=== PATIENT | female | born 1985 | race Caucasian/White ===

== ENCOUNTER 2016-12-12 02:45 | Emergency (ER) | payer OTHER ==
[~2016-12-12] VITALS: Ht 170.1 cm; Wt 68.0 kg
[~2016-12-12 02:45] MED LIST: AMOXICILLIN500 M3 PO; AMOXICILLIN500 MG PO; AMOXIL500 MG PO; ANAPROX DS550 MG PO; AUGMENTIN 875 M1 TAB PO; AUGMENTIN 875875 MG PO; BACTRIM DS 8001 TA1 PO; CATAFLAM50 MG PO; CIPRO500 MG PO; CLARITIN10 MG PO; CYCLOBENZAPRINE10 MG PO; CYCLOBENZAPRINE5 M3 PO; Claritin-D 10 M1 T24 PO; FLAGYL500 MG PO; FLEXERIL10 MG PO; FLEXERIL5 MG PO; HYDROCODONE BIT1 T11 PO; IBU800 M1 PO; KEFLEX500 MG PO; METHIMAZOLE5 M1 PO; MOTRIN600 MG PO; MOTRIN800 MG PO; Motrin,Rufen800 MG PO; NAPROSYN500 MG PO; NORCO 325 MG-51 TAB PO; NORCO 5-325 TA1 EACH PO; PARAFON FORTE500 MG PO; PEN-VK500 MG PO; PHENERGAN W/DM480 ML PO; PHENERGAN25 M1 PO; PREDNICOT20 MG PO; PREDNISONE10 MG PO; PREDNISONE20 MG PO; PREDNISONE50 MG PO; PROVENTIL0.09 MG/A1 INH; PROVENTIL0.09 MG/AC IH; PYRIDIUM200 MG PO; ROBAXIN500 MG PO; ROBITUSSIN DM120 ML PO; SUDAFED60 M1 PO; SUDAFED60 MG PO; TESSALON PERLE100 M1 PO; TORADOL10 MG PO; TRAMADOL HCL50 MG PO; TRAZADONE HYDR100 MG PO; ULTRAM50 MG PO; VALIUM10 MG PO; VALIUM5 MG PO; VICODIN 5/500 505 MG PO; ZITHROMAX Z PA250 MG PO; ZITHROMAX Z-PA250 MG PO; ZITHROMAX250 MG PO; ZOFRAN ODT4 MG SL; Zofran4 MG PO
[2016-12-12 03:04] LABS: BASO % 0.1 % (0.0-1.0); EOS # 0.1 10*3/uL (0.0-0.4); HEMATOCRIT 33.3 % (37.0-47.0); HEMOGLOBIN 10.8 g/dl (12.0-16.0); LYMPH # 3.6 10*3/uL (1.3-4.4); LYMPH % 43.9 % (27.0-41.0); MEAN CELL VOLUME 83.3 fl (81.0-99.0); MEAN CORPUSCULAR HGB CONC 32.4 g/dl (33.0-37.0); MEAN PLATELET VOLUME 9.5 fl (9.6-12.3); MONO # 0.8 10*3/uL (0.1-1.0); MONO % 9.3 % (3.0-9.0); NEUT # 3.7 10*3/uL (2.3-7.9); NEUT % 45.5 % (47.0-73.0); PLATELET COUNT AUTOMATED 217 10*3/uL (130-400); RED CELL DISTRI WIDTH 13.8 % (0-14.5); WHITE BLOOD COUNT 8.2 10*3/uL (4.8-10.8)
[2016-12-12 03:10] LABS: BILIRUBIN NEGATIVE (NEGATIVE); BLOOD NEGATIVE (NEGATIVE); CLARITY SL CLOUDY (CLEAR); COLOR YELLOW (YELLOW); GLUCOSE NEGATIVE (NEGATIVE); KETONE NEGATIVE (NEGATIVE); LEUKO ESTERASE NEGATIVE (NEGATIVE); NITRITE NEGATIVE (NEGATIVE); PH 6.5 (5.0-9.0); PROTEIN NEGATIVE (NEGATIVE); UROBILINOGEN 0.2 E.U./dl (0.2-1.0)
[2016-12-12 03:14] LABS: PROTHROMBIN TIME 10.4 SECONDS (9.0-12.4)
[2016-12-12 03:15] LABS: BACTERIA TRACE; EPITHELIAL CELLS TNTC; WBC 0-2 wbc/hpf (0-5)
[2016-12-12 03:16] LABS: URINE REFLEX COMMENT NO (NO)
[2016-12-12 03:21] LABS: ALBUMIN 2.9 gm/dl (3.1-4.5); ALKALINE PHOSPHATASE 132 U/L (45-117); BILIRUBIN, TOTAL 0.2 mg/dl (0.2-1.0); BUN 10 mg/dl (7-24); CARBON DIOXIDE 24 mmol/L (21-32); CHLORIDE 113 mmol/L (98-107); CKMB 0.7 ng/ml (0.5-3.6); CPK 17 U/L (26-192); EST GLOM FILT AFRICAN AMERICAN > 60 ml/min; GLUCOSE 99 mg/dL (65-99); MAGNESIUM 1.9 mg/dL (1.5-2.1); POTASSIUM 4.1 mmol/L (3.5-5.1); SGOT/AST 10 IU/L (3-35); SGPT/ALT 27 U/L (12-78); SODIUM 145 mmol/L (136-145); TOTAL PROTEIN 5.9 gm/dL (6.4-8.2)
[2016-12-12 03:22] LABS: TROPONIN I < 0.015 ng/ml (<0.045)
[2016-12-12] MEDS ORDERED: INDOMETHACIN50 MG PO (04:53)
== END 2016-12-12 04:53 | disposition home or self-care (01) ==
LOC: ED 02:45
PROVIDERS: Emergency Medicine
DX: R07.89 Other chest pain (principal); F17.200 Nicotine dependence, unspecified, uncomplicated; I10 Essential (primary) hypertension; E03.9 Hypothyroidism, unspecified; F41.0 Panic disorder [episodic paroxysmal anxiety]; F14.10 Cocaine abuse, uncomplicated; F12.10 Cannabis abuse, uncomplicated; Z98.890 Other specified postprocedural states; Z90.49 Acquired absence of other specified parts of digestive tract

== ENCOUNTER → 2016-12-14 | Outpatient (CLI) | payer OTHER ==
[~2016-12-14] MED LIST changes: +INDOMETHACIN50 MG PO
--- NOTE | ~2016-12-14 | PF ---
[place], [place] PULMONARY FUNCTION TEST NAME: DIVINE PEREZ [facility] #: [id number] UNIT #: [id number] ROOM: DOCTOR: CHRISTO GREGORY MD,TOM BIRTHDATE: [birth year] DOS: 12/14/2016 HISTORY: Noted for this patient as 31 years old, outpatient, female, height of 68 inches and weight of 160 pounds, presented for the complete pulmonary function test for assessment of symptoms of productive cough with dyspnea with exertion and wheezing. The test was ordered by Dr. Divine Hayward. Tobacco use was noted 2 packs of cigarettes per day, which was continued for the past 22 years. Spirometry for this patient, the FVC for this patient was noted as 4.14 liters, 90% predicted value. The FEV1 was noted as 3.34 liters and 97% predicted value normal. Ratio of FEV1/FVC was recorded as 89%. No significant changes occurred for this patient postbronchodilator test. Flow volume loop was noted essentially normal. The lung volumes, thoracic gas volume recorded at 101%, residual volume 86%, total lung capacity 92%. All the lung volumes were noted as normal. The patient's lung diffusion noted normal at 79%. The patient's airway resistance and passive conductance were noted normal, however, partial improvement occurred postbronchodilator test. FINAL IMPRESSION: The pulmonary function tests were essentially noted normal with possibility of mild reversible obstructive lung disease cannot be completely excluded with current airway resistance, passive conductance testing. TOM VILLAFUERTE MD CM:PFREPORT:PULMONARY FUNCTION TEST [id number] TOM GREGORY MD
== END | disposition home or self-care (01) ==
LOC: LAB 08:33
DX: R06.2 Wheezing (principal)

== ENCOUNTER 2017-02-20 20:18 | Emergency (ER) | payer OTHER ==
[~2017-02-20] VITALS: Ht 170.1 cm; Wt 75.7 kg
[2017-02-20] MEDS ORDERED: BACTRIM DS 8001 TA1 PO (21:49)
== END 2017-02-20 21:52 | disposition home or self-care (01) ==
LOC: ED 20:18
DX: J32.9 Chronic sinusitis, unspecified (principal); F17.200 Nicotine dependence, unspecified, uncomplicated; F14.10 Cocaine abuse, uncomplicated; F12.90 Cannabis use, unspecified, uncomplicated; I10 Essential (primary) hypertension; E03.9 Hypothyroidism, unspecified; F41.0 Panic disorder [episodic paroxysmal anxiety]; Z98.890 Other specified postprocedural states; Z90.49 Acquired absence of other specified parts of digestive tract

== ENCOUNTER 2017-02-22 10:47 | Emergency (ER) | payer OTHER ==
[~2017-02-22] VITALS: Ht 170.1 cm; Wt 74.4 kg
[2017-02-22 11:26] LABS: BASO % 0.1 % (0.0-1.0); EOS # 0.1 10*3/uL (0.0-0.4); EOS % 0.9 % (1.0-4.0); HEMATOCRIT 37.2 % (37.0-47.0); HEMOGLOBIN 11.9 g/dl (12.0-16.0); LYMPH # 2.1 10*3/uL (1.3-4.4); LYMPH % 28.3 % (27.0-41.0); MEAN CELL VOLUME 83.6 fl (81.0-99.0); MEAN CORPUSCULAR HGB 26.7 pg (27.0-31.0); MEAN PLATELET VOLUME 9.5 fl (9.6-12.3); MONO # 0.8 10*3/uL (0.1-1.0); MONO % 10.3 % (3.0-9.0); NEUT # 4.5 10*3/uL (2.3-7.9); PLATELET COUNT AUTOMATED 252 10*3/uL (130-400); RED BLOOD COUNT 4.45 10*6/uL (4.10-5.10); WHITE BLOOD COUNT 7.5 10*3/uL (4.8-10.8)
[2017-02-22 11:43] LABS: ALBUMIN 3.1 gm/dl (3.1-4.5); ALKALINE PHOSPHATASE 192 U/L (45-117); BILIRUBIN, TOTAL 0.3 mg/dl (0.2-1.0); BUN 11 mg/dl (7-24); CARBON DIOXIDE 24 mmol/L (21-32); CHLORIDE 110 mmol/L (98-107); EST GLOM FILT AFRICAN AMERICAN > 60 ml/min; GLUCOSE 99 mg/dL (65-99); POTASSIUM 4.6 mmol/L (3.5-5.1); SGOT/AST 8 IU/L (3-35); SGPT/ALT 18 U/L (12-78); SODIUM 142 mmol/L (136-145); TOTAL PROTEIN 6.6 gm/dL (6.4-8.2)
[2017-02-22 11:45] LABS: TROPONIN I < 0.015 ng/ml (<0.045)
[2017-02-22 13:33] LABS: BILIRUBIN NEGATIVE (NEGATIVE); BLOOD NEGATIVE (NEGATIVE); CLARITY CLEAR (CLEAR); COLOR YELLOW (YELLOW); GLUCOSE NEGATIVE (NEGATIVE); KETONE NEGATIVE (NEGATIVE); LEUKO ESTERASE NEGATIVE (NEGATIVE); NITRITE NEGATIVE (NEGATIVE); PH 5.5 (5.0-9.0); PROTEIN NEGATIVE (NEGATIVE); SPECIFIC GRAVITY <= 1.005 (1.005-1.030); UROBILINOGEN 0.2 E.U./dl (0.2-1.0)
[2017-02-22 13:41] LABS: WBC 0-2 wbc/hpf (0-5)
[2017-02-22 13:42] LABS: BACTERIA 1+; URINE REFLEX COMMENT NO (NO)
== END 2017-02-22 14:27 | disposition other institution (70) ==
LOC: ED 10:47
PROVIDERS: Registered Nurse
DX: J32.9 Chronic sinusitis, unspecified (principal); F17.200 Nicotine dependence, unspecified, uncomplicated; F14.10 Cocaine abuse, uncomplicated; Z90.49 Acquired absence of other specified parts of digestive tract; Z98.890 Other specified postprocedural states

== ENCOUNTER 2017-04-05 19:52 | Inpatient (IN) | payer OTHER ==
[~2017-04-05] VITALS: Ht 170.1 cm; Wt 75.9 kg
[2017-04-05 19:59] VITALS: BP 137/68
[2017-04-05] MEDS ORDERED: DIAZEPAM5 MG PO (20:02)
[2017-04-05 20:39] LABS: BASO % 0.2 % (0.0-1.0); EOS % 0.5 % (1.0-4.0); HEMATOCRIT 32.9 % (37.0-47.0); HEMOGLOBIN 10.6 g/dl (12.0-16.0); LYMPH # 2.3 10*3/uL (1.3-4.4); LYMPH % 39.9 % (27.0-41.0); MEAN CELL VOLUME 83.3 fl (81.0-99.0); MEAN CORPUSCULAR HGB 26.8 pg (27.0-31.0); MEAN CORPUSCULAR HGB CONC 32.2 g/dl (33.0-37.0); MEAN PLATELET VOLUME 9.6 fl (9.6-12.3); MONO # 0.6 10*3/uL (0.1-1.0); MONO % 10.2 % (3.0-9.0); NEUT # 2.9 10*3/uL (2.3-7.9); PLATELET COUNT AUTOMATED 214 10*3/uL (130-400); RED BLOOD COUNT 3.95 10*6/uL (4.10-5.10); RED CELL DISTRI WIDTH 13.2 % (0-14.5); WHITE BLOOD COUNT 5.8 10*3/uL (4.8-10.8)
[2017-04-05 20:57] LABS: ALBUMIN 2.7 gm/dl (3.1-4.5); ALKALINE PHOSPHATASE 177 U/L (45-117); BILIRUBIN, TOTAL 0.3 mg/dl (0.2-1.0); BUN 11 mg/dl (7-24); CARBON DIOXIDE 24 mmol/L (21-32); CHLORIDE 113 mmol/L (98-107); EST GLOM FILT AFRICAN AMERICAN > 60 ml/min; GLUCOSE 102 mg/dL (65-99); MAGNESIUM 1.6 mg/dL (1.5-2.1); POTASSIUM 3.6 mmol/L (3.5-5.1); SGOT/AST 10 IU/L (3-35); SGPT/ALT 22 U/L (12-78); SODIUM 144 mmol/L (136-145); TOTAL PROTEIN 5.7 gm/dL (6.4-8.2)
[2017-04-05 21:01] LABS: TROPONIN I < 0.015 ng/ml (<0.045)
[2017-04-05 21:16] VITALS: BP 135/77
[2017-04-05 21:46] VITALS: BP 108/84
[2017-04-05 22:00] VITALS: BP 146/88
[2017-04-05 23:20] VITALS: BP 146/88
[2017-04-05 23:59] LABS: URINE AMPHETAMINES < 1000 (1000ng/ml); URINE BARBITURATES < 200 (200ng/ml); URINE COCAINE < 300 (300ng/ml)
== END 2017-04-06 00:20 | disposition left against medical advice (07) | DRG 313 ==
LOC: ED 19:52 → EDHOLD 21:20 → 4E 21:34
PROVIDERS: Internal Medicine; Student in an Organized Health Care Education/Training Program
DX: R07.9 Chest pain, unspecified (principal); E43 Unspecified severe protein-calorie malnutrition; E87.8 Other disorders of electrolyte and fluid balance, not elsewhere classified; J44.9 Chronic obstructive pulmonary disease, unspecified; F41.0 Panic disorder [episodic paroxysmal anxiety]; D64.9 Anemia, unspecified; I10 Essential (primary) hypertension; E05.90 Thyrotoxicosis, unspecified without thyrotoxic crisis or storm; R73.9 Hyperglycemia, unspecified; F14.10 Cocaine abuse, uncomplicated; F12.10 Cannabis abuse, uncomplicated; F10.10 Alcohol abuse, uncomplicated; Z90.49 Acquired absence of other specified parts of digestive tract; Z83.3 Family history of diabetes mellitus; Z82.49 Family history of ischemic heart disease and other diseases of the circulatory system; Z68.26 Body mass index [BMI] 26.0-26.9, adult; Z71.6 Tobacco abuse counseling; Z72.0 Tobacco use

== ENCOUNTER 2017-04-17 11:56 | Emergency (ER) | payer OTHER ==
[~2017-04-17] VITALS: Wt 77.1 kg
[~2017-04-17 11:56] MED LIST changes: +DIAZEPAM5 MG PO
[2017-04-17] MEDS ORDERED: PROVENTIL0.09 MG/A1 INH (12:02)
[2017-04-17 12:32] LABS: BASO % 0.1 % (0.0-1.0); EOS # 0.1 10*3/uL (0.0-0.4); EOS % 0.4 % (1.0-4.0); HEMATOCRIT 36.8 % (37.0-47.0); HEMOGLOBIN 11.9 g/dl (12.0-16.0); IG # 0.1 10*3/uL (0.0-0.1); LYMPH # 1.9 10*3/uL (1.3-4.4); LYMPH % 13.2 % (27.0-41.0); MEAN CELL VOLUME 83.3 fl (81.0-99.0); MEAN CORPUSCULAR HGB 26.9 pg (27.0-31.0); MEAN CORPUSCULAR HGB CONC 32.3 g/dl (33.0-37.0); MEAN PLATELET VOLUME 9.4 fl (9.6-12.3); MONO # 0.9 10*3/uL (0.1-1.0); MONO % 5.9 % (3.0-9.0); NEUT # 11.5 10*3/uL (2.3-7.9); NEUT % 79.9 % (47.0-73.0); OXYHEMOGLOBIN 88.1 % (85.0-98.0); PLATELET COUNT AUTOMATED 285 10*3/uL (130-400); RED BLOOD COUNT 4.42 10*6/uL (4.10-5.10); RED CELL DISTRI WIDTH 13.9 % (0-14.5); TOTAL HGB 12.3 G/DL (12.0-16.0); WHITE BLOOD COUNT 14.5 10*3/uL (4.8-10.8)
[2017-04-17 12:43] LABS: BUN 8 mg/dl (7-24); CARBON DIOXIDE 22 mmol/L (21-32); CHLORIDE 111 mmol/L (98-107); EST GLOM FILT AFRICAN AMERICAN > 60 ml/min; GLUCOSE 111 mg/dL (65-99); POTASSIUM 3.8 mmol/L (3.5-5.1); SODIUM 141 mmol/L (136-145)
[2017-04-17] MEDS ORDERED: DUONEB 3 MG/3 ML3 M1 INH (12:55)
[2017-04-17] MEDS ORDERED: LEVOFLOXACIN500 MG PO (12:55)
== END 2017-04-17 13:09 | disposition home or self-care (01) ==
LOC: ED 11:56
PROVIDERS: Emergency Medicine
DX: J18.9 Pneumonia, unspecified organism (principal); J45.909 Unspecified asthma, uncomplicated; F14.10 Cocaine abuse, uncomplicated; J44.9 Chronic obstructive pulmonary disease, unspecified; F12.10 Cannabis abuse, uncomplicated; Z79.899 Other long term (current) drug therapy; Z87.891 Personal history of nicotine dependence

== ENCOUNTER 2017-06-05 17:08 | Emergency (ER) | payer OTHER ==
[~2017-06-05] VITALS: Ht 170.1 cm; Wt 76.2 kg
[~2017-06-05 17:08] MED LIST changes: +DUONEB 3 MG/3 ML3 M1 INH; +LEVOFLOXACIN500 MG PO
[2017-06-05] MEDS ORDERED: AMOXICILLIN500 M2 PO (19:09)
[2017-06-05] MEDS ORDERED: NAPROSYN500 MG PO (19:09)
== END 2017-06-05 19:40 | disposition home or self-care (01) ==
LOC: ED 17:08
DX: S20.212A Contusion of left front wall of thorax, initial encounter (principal); K08.89 Other specified disorders of teeth and supporting structures; F17.200 Nicotine dependence, unspecified, uncomplicated; F12.10 Cannabis abuse, uncomplicated; Z90.49 Acquired absence of other specified parts of digestive tract; Z98.890 Other specified postprocedural states; Z79.899 Other long term (current) drug therapy; W01.198A Fall on same level from slipping, tripping and stumbling with subsequent striking against other object, initial encounter; Y93.89 Activity, other specified; Y92.89 Other specified places as the place of occurrence of the external cause; Y99.9 Unspecified external cause status

== ENCOUNTER 2017-06-12 10:20 | Emergency (ER) | payer OTHER ==
[~2017-06-12] VITALS: Ht 170.1 cm; Wt 76.2 kg
[~2017-06-12 10:20] MED LIST changes: +AMOXICILLIN500 M2 PO
[2017-06-12 11:16] LABS: BASO % 0.2 % (0.0-1.0); EOS % 0.7 % (1.0-4.0); HEMATOCRIT 36.3 % (37.0-47.0); HEMOGLOBIN 11.8 g/dl (12.0-16.0); LYMPH # 1.7 10*3/uL (1.3-4.4); LYMPH % 29.1 % (27.0-41.0); MEAN CELL VOLUME 83.8 fl (81.0-99.0); MEAN CORPUSCULAR HGB 27.3 pg (27.0-31.0); MEAN CORPUSCULAR HGB CONC 32.5 g/dl (33.0-37.0); MEAN PLATELET VOLUME 9.6 fl (9.6-12.3); MONO # 0.6 10*3/uL (0.1-1.0); MONO % 10.3 % (3.0-9.0); NEUT # 3.5 10*3/uL (2.3-7.9); NEUT % 59.4 % (47.0-73.0); PLATELET COUNT AUTOMATED 235 10*3/uL (130-400); RED BLOOD COUNT 4.33 10*6/uL (4.10-5.10); RED CELL DISTRI WIDTH 13.1 % (0-14.5); WHITE BLOOD COUNT 5.9 10*3/uL (4.8-10.8)
[2017-06-12 11:34] LABS: ALKALINE PHOSPHATASE 201 U/L (45-117); BUN 13 mg/dl (7-24); CHLORIDE 107 mmol/L (98-107); POTASSIUM 3.6 mmol/L (3.5-5.1); SGOT/AST 11 IU/L (3-35); SGPT/ALT 32 U/L (12-78); SODIUM 139 mmol/L (136-145); TOTAL PROTEIN 6.4 gm/dL (6.4-8.2)
[2017-06-12] MEDS ORDERED: CYCLOBENZAPRINE5 M3 PO (12:39)
[2017-06-12] MEDS ORDERED: NAPROSYN500 MG PO (12:39)
== END 2017-06-12 13:53 | disposition home or self-care (01) ==
LOC: ED 10:20
PROVIDERS: Nurse Practitioner Family
DX: M94.0 Chondrocostal junction syndrome [Tietze] (principal); F17.200 Nicotine dependence, unspecified, uncomplicated; F12.10 Cannabis abuse, uncomplicated; F14.10 Cocaine abuse, uncomplicated; E03.9 Hypothyroidism, unspecified; E78.00 Pure hypercholesterolemia, unspecified; Z90.49 Acquired absence of other specified parts of digestive tract; Z98.890 Other specified postprocedural states; Z79.899 Other long term (current) drug therapy

== ENCOUNTER 2018-09-02 08:40 | Emergency (ER) | payer OTHER ==
[~2018-09-02] VITALS: Ht 170.1 cm; Wt 77.1 kg
[2018-09-02] MEDS ORDERED: NAPROSYN500 MG PO (10:30)
== END 2018-09-02 10:50 | disposition home or self-care (01) ==
LOC: ED 08:40
DX: G56.01 Carpal tunnel syndrome, right upper limb (principal); F17.200 Nicotine dependence, unspecified, uncomplicated; Z79.899 Other long term (current) drug therapy

== ENCOUNTER → 2019-05-14 | Outpatient (CLI) | payer OTHER ==
--- NOTE | ~2019-05-14 | EKG ---
[place], [place] ELECTROCARDIOGRAM REPORT NAME: RAD PEREZ UNIT #: [id number] ROOM: DOCTOR: ANA DRAFT REPORT BIRTHDATE: [birth year] [facility] Test Date: 2019-05-14 Test Time: 14:40:09 Pat Name: RAD PEREZ Department: Room: Gender: F [employer]: [employer]ufemia Celeste : 1985 Requested By: MARLA BURT Order Number: [id number] Reading MD: Juan Diego Cowan MD Measurements Intervals [place] Rate: 101 P: 20 [place]: 141 QRS: 70 QRSD: 69 T: 75 QT: 333 QTc: 432 Interpretive Statements Sinus tachycardia Consider left ventricular hypertrophy No previous ECG available for comparison Electronically Signed On 05-14-2019 12:32:02 PDT by Juan Diego Cowan MD CM:EKGRPT:ELECTROCARDIOGRAM REPORT [id number] MARLA PEREZ DRAFT REPORT MARLA BURT
== END | disposition home or self-care (01) ==
LOC: CARD 14:30
DX: Z51.81 Encounter for therapeutic drug level monitoring (principal); R00.0 Tachycardia, unspecified; Z79.899 Other long term (current) drug therapy

== ENCOUNTER 2019-10-19 13:33 | Emergency (ER) | payer OTHER ==
[~2019-10-19] VITALS: Ht 170.1 cm; Wt 74.8 kg
== END 2019-10-19 15:45 | disposition home or self-care (01) ==
LOC: ED 13:33
DX: S39.012A Strain of muscle, fascia and tendon of lower back, initial encounter (principal); S13.4XXA Sprain of ligaments of cervical spine, initial encounter; J44.9 Chronic obstructive pulmonary disease, unspecified; E03.9 Hypothyroidism, unspecified; F41.9 Anxiety disorder, unspecified; F32.9 Major depressive disorder, single episode, unspecified; Z79.2 Long term (current) use of antibiotics; Z79.899 Other long term (current) drug therapy; Z90.49 Acquired absence of other specified parts of digestive tract; V89.2XXA Person injured in unspecified motor-vehicle accident, traffic, initial encounter; Y93.89 Activity, other specified; Y92.89 Other specified places as the place of occurrence of the external cause; Y99.8 Other external cause status

== ENCOUNTER 2020-06-29 12:41 | Emergency (ER) | payer OTHER ==
[~2020-06-29] VITALS: Ht 170.1 cm; Wt 74.8 kg
[2020-06-29] MEDS ORDERED: OMNICEF300 MG PO (13:46)
[2020-06-29] MEDS ORDERED: ZYRTEC10 M3 PO (13:46)
== END 2020-06-29 13:51 | disposition home or self-care (01) ==
LOC: ED 12:41
DX: H66.92 Otitis media, unspecified, left ear (principal); J01.90 Acute sinusitis, unspecified; F32.9 Major depressive disorder, single episode, unspecified; Z79.899 Other long term (current) drug therapy

== ENCOUNTER → 2020-08-25 | Outpatient (CLI) | payer OTHER ==
[~2020-08-25] MED LIST changes: +OMNICEF300 MG PO; +ZYRTEC10 M3 PO
== END | disposition home or self-care (01) ==
LOC: COVID19 11:30
PROVIDERS: ATTEND Internal Medicine
DX: Z20.828 Contact with and (suspected) exposure to other viral communicable diseases (principal)

== ENCOUNTER 2020-09-29 10:30 | Emergency (ER) | payer OTHER ==
[~2020-09-29] VITALS: Ht 170.1 cm; Wt 74.8 kg
[2020-09-29 11:36] LABS: BASO # 0.1 10*3/uL (0.0-0.1); BASO % 0.5 % (0.0-1.0); EOS # 0.1 10*3/uL (0.0-0.4); EOS % 0.8 % (1.0-4.0); HEMATOCRIT 41.3 % (37.0-47.0); LYMPH # 2.5 10*3/uL (1.3-4.4); LYMPH % 24.7 % (27.0-41.0); MEAN CELL VOLUME 90.2 fl (81.0-99.0); MEAN CORPUSCULAR HGB 28.8 pg (27.0-31.0); MEAN PLATELET VOLUME 8.7 fl (9.6-12.3); MONO # 0.6 10*3/uL (0.1-1.0); MONO % 6.5 % (3.0-9.0); NEUT # 6.7 10*3/uL (2.3-7.9); NEUT % 67.3 % (47.0-73.0); PLATELET COUNT AUTOMATED 403 10*3/uL (130-400); RED BLOOD COUNT 4.58 10*6/uL (4.10-5.10); RED CELL DISTRI WIDTH 12.7 % (0-14.5); WHITE BLOOD COUNT 9.9 10*3/uL (4.8-10.8)
[2020-09-29 11:48] LABS: ACT PARTIAL THROMBO TIME 24.2 SECONDS (20.0-32.1); INTERNATIONAL NORM RATIO 0.9 (2.0-3.5)
[2020-09-29 12:03] LABS: ALBUMIN 3.6 gm/dl (3.1-4.5); ALKALINE PHOSPHATASE 98 U/L (45-117); BUN 15 mg/dl (7-24); CHLORIDE 107 mmol/L (98-107); CREATININE 0.84 mg/dL (0.55-1.02); LIPASE 135 U/L (73-393); POTASSIUM 3.9 mmol/L (3.5-5.1); SGPT/ALT 16 U/L (12-78); SODIUM 137 mmol/L (136-145); TOTAL PROTEIN 6.9 gm/dL (6.4-8.2)
[2020-09-29 12:04] LABS: BETA-HCG, QUANT < 1.0 mIU/mL (1-3); SGOT/AST < 3 IU/L (3-35); TROPONIN I < 0.015 ng/ml (<0.045)
== END 2020-09-29 13:47 | disposition left against medical advice (07) ==
LOC: ED 10:30
PROVIDERS: Emergency Medicine
DX: M54.42 Lumbago with sciatica, left side (principal); R07.9 Chest pain, unspecified

== ENCOUNTER 2021-08-24 11:28 | Emergency (ER) | payer OTHER ==
[~2021-08-24] VITALS: Ht 170.1 cm; Wt 77.1 kg
[2021-08-24] MEDS ORDERED: VIBRAMYCIN100 MG PO (13:46)
[2021-08-24] MEDS ORDERED: PREDNISONE20 M1 PO (13:46)
== END 2021-08-24 14:00 | disposition home or self-care (01) ==
LOC: ED 11:28
DX: J40 Bronchitis, not specified as acute or chronic (principal); Z20.822 Contact with and (suspected) exposure to COVID-19

== ENCOUNTER 2022-02-26 17:14 | Emergency (ER) | payer OTHER ==
[~2022-02-26] VITALS: Ht 170.1 cm; Wt 77.1 kg
[~2022-02-26 17:14] MED LIST changes: +PREDNISONE20 M1 PO; +VIBRAMYCIN100 MG PO
[2022-02-26] MEDS ORDERED: NAPROSYN500 MG PO (20:26)
[2022-02-26] MEDS ORDERED: CYCLOBENZAPRINE10 MG PO (20:26)
== END 2022-02-26 20:34 | disposition home or self-care (01) ==
LOC: ED 17:14
DX: M25.512 Pain in left shoulder (principal); Z90.49 Acquired absence of other specified parts of digestive tract; Z98.890 Other specified postprocedural states

== ENCOUNTER 2022-04-26 17:11 | Emergency (ER) | payer OTHER ==
[~2022-04-26] VITALS: Wt 79.4 kg
[2022-04-26] MEDS ORDERED: CORTISPORIN SUS10 ML OT (17:45)
== END 2022-04-26 17:49 | disposition home or self-care (01) ==
LOC: ED 17:11
DX: H60.91 Unspecified otitis externa, right ear (principal); Z90.49 Acquired absence of other specified parts of digestive tract; Z98.890 Other specified postprocedural states; Z87.891 Personal history of nicotine dependence

== ENCOUNTER 2023-03-29 17:39 | Emergency (ER) | payer OTHER ==
[~2023-03-29] VITALS: Ht 170.1 cm; Wt 90.7 kg
[~2023-03-29 17:39] MED LIST changes: +CORTISPORIN SUS10 ML OT
[2023-03-29] MEDS ORDERED: AMOX-CLAV 875-1 EACH PO (20:19)
== END 2023-03-29 20:17 | disposition home or self-care (01) ==
LOC: ED 17:39
DX: H66.91 Otitis media, unspecified, right ear (principal); F32.A Depression, unspecified; F41.9 Anxiety disorder, unspecified; J44.9 Chronic obstructive pulmonary disease, unspecified; Z90.49 Acquired absence of other specified parts of digestive tract; Z98.890 Other specified postprocedural states; F17.200 Nicotine dependence, unspecified, uncomplicated; F12.90 Cannabis use, unspecified, uncomplicated

== ENCOUNTER 2023-06-19 16:20 | Emergency (ER) | payer OTHER ==
[~2023-06-19] VITALS: Ht 170.1 cm; Wt 86.2 kg
[~2023-06-19 16:20] MED LIST changes: +AMOX-CLAV 875-1 EACH PO
== END 2023-06-19 22:09 | disposition left against medical advice (07) ==
LOC: ED 16:20
DX: S51.812A Laceration without foreign body of left forearm, initial encounter (principal); S61.512A Laceration without foreign body of left wrist, initial encounter; J44.9 Chronic obstructive pulmonary disease, unspecified; E87.8 Other disorders of electrolyte and fluid balance, not elsewhere classified; R73.9 Hyperglycemia, unspecified; E05.90 Thyrotoxicosis, unspecified without thyrotoxic crisis or storm; D64.9 Anemia, unspecified; Z90.49 Acquired absence of other specified parts of digestive tract; Z98.890 Other specified postprocedural states; F17.200 Nicotine dependence, unspecified, uncomplicated; F12.90 Cannabis use, unspecified, uncomplicated; W26.8XXA Contact with other sharp object(s), not elsewhere classified, initial encounter; Y93.89 Activity, other specified; Y92.89 Other specified places as the place of occurrence of the external cause; Y99.8 Other external cause status

== ENCOUNTER → 2023-06-29 | Outpatient (CLI) | payer OTHER | LOC: WOUNDCARE 00:21 | PROVIDERS: ATTEND Nurse Practitioner Family | DX: S51.812A Laceration without foreign body of left forearm, initial encounter (principal); E43 Unspecified severe protein-calorie malnutrition; J44.9 Chronic obstructive pulmonary disease, unspecified; F12.10 Cannabis abuse, uncomplicated; F17.210 Nicotine dependence, cigarettes, uncomplicated; Z71.6 Tobacco abuse counseling; Z90.49 Acquired absence of other specified parts of digestive tract; X58.XXXA Exposure to other specified factors, initial encounter; Y93.89 Activity, other specified; Y92.89 Other specified places as the place of occurrence of the external cause; Y99.8 Other external cause status ==